=== PATIENT | female | born 1995 | race African-American/Black ===

== ENCOUNTER 2017-12-20 02:34 | Emergency (ER) | payer SELFPAY ==
[~2017-12-20] VITALS: Ht 162.6 cm; Wt 120.0 kg
--- NOTE | 2017-12-20 02:43 | PD ---
HPI Chief Complaint: ETOH Time Seen by Provider: 02:41 Travel History International Travel<30 days: No Contact w/Intl Traveler<30days: No Traveled to known affect area: No History of Present Illness HPI 22-year-old female presents emergency department under a [place] act for intoxication. Patient has been drinking heavily this evening at a [employer] party. She was with a friend when she became more obtunded. She began vomiting. Patient is vomiting here in triage. She is arousable. She can tell me her name and where she is. She denies any pain. Tells me that she will "be okay." Has smoked some marijuana. She denies any other illicit drug use. Denies chance of . Denies any acute medical needs. [facility] Past Medical History Medical History: Denies Significant Hx Social History Alcohol Use: Yes Tobacco Use: Yes Substance Use: Yes Allergies-Medications (Allergen,Severity, Reaction): Coded Allergies: No Allergy Information Available (Unverified , 12/20/17) Review of Systems ROS Limitations: Intoxication Except as stated in HPI: all other systems reviewed are Neg Physical Exam Exam Limitations: Intoxication Narrative GENERAL: Well-nourished female patient, clinically intoxicated, in no acute distress. SKIN: Focused skin assessment warm/dry. HEAD: Atraumatic. Normocephalic. EYES: Pupils equal and round. No scleral icterus. No injection or drainage. ENT: No nasal bleeding or discharge. Mucous membranes pink and moist. NECK: Trachea midline. No JVD. CARDIOVASCULAR: Regular rate and rhythm. No murmur appreciated. RESPIRATORY: No accessory muscle use. Clear to auscultation. Breath sounds equal bilaterally. GASTROINTESTINAL: Abdomen soft, non-tender, nondistended. Hepatic and splenic margins not palpable. MUSCULOSKELETAL: No obvious deformities. No clubbing. No cyanosis. No edema. NEUROLOGICAL: Lethargic, arousable no obvious cranial nerve deficits. Motor grossly within normal limits. Slurred speech PSYCHIATRIC: Questionable judgment Data Data Last Documented VS Vital Signs Date Time Temp Pulse Resp B/P (MAP) Pulse Ox O2 Delivery O2 Flow Rate FiO2 12/20/17 02:59 98.1 80 12 190/79 (116) 98 Orders Orders Alcohol (Ethanol) (12/20/17 02:43) Sodium Chlor 0.9% 1000 Ml Inj (Ns 1000 M (12/20/17 02:45) Labs Laboratory Tests Test 12/20/17 02:50 Ethyl Alcohol Level 210 MG/DL [facility] Medical Decision Making Medical Screen Exam Complete: Yes Emergency Medical Condition: Yes Medical Record Reviewed: Yes Differential Diagnosis Intoxication versus polysubstance abuse versus mood disorder Narrative Course 22-year-old female presents emergency department under [place] act for intoxication. Patient is arousable. She does tell me she has been drinking a large amount of alcohol this evening at a [employer] party. She has vomited over herself. She is received IV fluids and Zofran. She will be monitored until she is clinically sober at which time she will be discharged. Diagnosis Primary Impression: Alcohol intoxication Qualified Codes: F10.929 - Alcohol use, unspecified with intoxication, unspecified Condition: Stable Cyndy Mills Dec 20, 2017 02:43
[2017-12-20] MEDS ORDERED: SODIUM CHLOR 0.9% 1000 ML INJ 1,000 ML IV ONE (02:45)
[2017-12-20 02:59] VITALS: BP 190/79; PULSE 80; RESP 12; TEMP 98.1; O2SAT 98
[2017-12-20 08:00] VITALS: BP 138/0
== END 2017-12-20 08:24 | disposition home or self-care (01) ==
LOC: NEDAMB 02:34
DX: F10.129 Alcohol abuse with intoxication, unspecified (principal); R11.10 Vomiting, unspecified; F12.90 Cannabis use, unspecified, uncomplicated; Z72.0 Tobacco use
CPT/HCPCS: 80307; 96360; 96361; 99284; J7030